=== PATIENT | female | born 1965 | race Caucasian/White ===

== ENCOUNTER 2024-11-03 08:56 | Emergency (ER) | payer OTHER ==
[~2024-11-03] VITALS: Ht 162.6 cm; Wt 138.3 kg
[2024-11-03 10:11] LABS: BASOPHILS ABSOLUTE AUTO 0.03 K/mm3 (0.00-0.23); BASOPHILS PERCENT AUTO 1 % (0-2); EOSINOPHILS ABSOLUTE AUTO 0.17 K/mm3 (0.00-0.68); EOSINOPHILS PERCENT AUTO 3 % (0-6); Hematocrit 40.7 % (33.0-51.0); Hemoglobin 13.8 g/dL (11.5-16.0); IMMATURE GRAN ABSOLUTE AUTO 0.04 K/mm3 (0.00-0.10); IMMATURE GRAN PERCENT AUTO 1 % (0-1); LYMPHOCYTES ABSOLUTE AUTO 1.39 K/mm3 (0.84-5.20); LYMPHOCYTES PERCENT AUTO 21 % (21-46); MONOCYTES ABSOLUTE AUTO 0.65 K/mm3 (0.16-1.47); MONOCYTES PERCENT AUTO 10 % (4-13); Mean Corpuscular HGB 32.7 pg (26.0-34.0); Mean Corpuscular HGB Conc 33.9 g/dL (31.5-36.5); Mean Corpuscular Volume 96 fL (80-100); Mean Platelet Volume 9.5 fL (9.1-12.4); NEUTROPHILS ABSOLUTE AUTO 4.21 K/mm3 (1.96-9.15); NEUTROPHILS PERCENT AUTO 65 % (41-73); Platelet Count 133 K/mm3 (150-400); RDW Coefficient Variation 16.1 % (11.7-14.2); RDW Standard Deviation 57.5 fL (35.1-46.3); Red Blood Cell Count 4.22 M/mm3 (3.80-5.20); White Blood Cell Count 6.49 K/mm3 (4.00-11.30)
[2024-11-03 10:14] LABS: Appearance, Urine Hazy (Clear); Bilirubin, Urine Neg (Neg); Blood, Urine Neg (Neg); Color, Urine Yellow (P-Yellow); Glucose Qualitative, Urine 3+ (Neg); Ketones, Urine Neg (Neg); Leukocyte Esterase, Urine Neg (Neg); Nitrite, Urine Neg (Neg); Protein, Urine Neg (Neg); Source, Urine Clean Catch; Urobilinogen, Urine NORM (Normal)
[2024-11-03 10:24] LABS: Albumin, Blood 3.1 g/dL (3.4-5.0); Albumin/Globulin Ratio 0.7 (0.8-1.8); Bilirubin, Total 0.7 mg/dL (0.1-1.0); Bun/Creatinine Ratio 19.6 (12.0-20.0); Creatinine, Blood 0.71 mg/dL (0.40-1.00); Globulin, Blood 4.6 g/dL (2.2-4.0); Potassium, Blood 4.2 mmol/L (3.5-5.5); Total Protein, Blood 7.7 g/dL (6.4-8.2)
[2024-11-03 11:42] LABS: Bacteria Many /hpf; Red Blood Cells, Urine 0-2 /hpf (0-2); Squamous Epithelial Cells Many /hpf (Few); White Blood Cells, Urine 0-2 /hpf (0-5)
[2024-11-03 11:43] LABS: Calcium Oxalate Crystals Rare /hpf; Mucus Light (0-Heavy)
[2024-11-03] MEDS ORDERED: HYDROcodone 5-APAP 325 TAB PO ONE (13:00)
[2024-11-03] MEDS ORDERED: Ketorolac Tromethamine 15mg Vial IV ONE (13:00)
[2024-11-03] MEDS ORDERED: Ondansetron HCl 2 MG / ML 2ML Vial IV ONE (13:15)
[2024-11-03] MEDS ORDERED: HYDROmorphone HCl/Pf 1MG SYR IV ONE (13:15)
[2024-11-03 13:22] VITALS: BP 126/84
== END 2024-11-03 14:25 | disposition home or self-care (01) ==
LOC: ER 08:56
PROVIDERS: Student in an Organized Health Care Education/Training Program
DX: R10.11 Right upper quadrant pain (principal); K76.0 Fatty (change of) liver, not elsewhere classified; N20.0 Calculus of kidney
CPT/HCPCS: 74177; 76705; 80053; 81001; 83690; 85025; 87086; 96374-59; 96375; 99285-25; A9270; J1171; J2405; Q9967

== ENCOUNTER 2024-11-08 00:34 | Emergency (ER) | payer OTHER ==
[~2024-11-08] VITALS: Ht 162.6 cm; Wt 138.3 kg
[2024-11-08 01:14] LABS: BASOPHILS ABSOLUTE AUTO 0.02 K/mm3 (0.00-0.23); BASOPHILS PERCENT AUTO 0 % (0-2); EOSINOPHILS PERCENT AUTO 1 % (0-6); Hematocrit 36.5 % (33.0-51.0); Hemoglobin 12.5 g/dL (11.5-16.0); IMMATURE GRAN ABSOLUTE AUTO 0.05 K/mm3 (0.00-0.10); IMMATURE GRAN PERCENT AUTO 1 % (0-1); LYMPHOCYTES ABSOLUTE AUTO 1.24 K/mm3 (0.84-5.20); LYMPHOCYTES PERCENT AUTO 16 % (21-46); MONOCYTES ABSOLUTE AUTO 0.74 K/mm3 (0.16-1.47); MONOCYTES PERCENT AUTO 10 % (4-13); Mean Corpuscular HGB 33.2 pg (26.0-34.0); Mean Corpuscular HGB Conc 34.2 g/dL (31.5-36.5); Mean Corpuscular Volume 97 fL (80-100); Mean Platelet Volume 9.7 fL (9.1-12.4); NEUTROPHILS PERCENT AUTO 72 % (41-73); Platelet Count 146 K/mm3 (150-400); RDW Coefficient Variation 15.5 % (11.7-14.2); RDW Standard Deviation 55.5 fL (35.1-46.3); Red Blood Cell Count 3.77 M/mm3 (3.80-5.20); White Blood Cell Count 7.65 K/mm3 (4.00-11.30)
[2024-11-08 01:30] LABS: Albumin, Blood 2.7 g/dL (3.4-5.0); Albumin/Globulin Ratio 0.6 (0.8-1.8); Bilirubin, Total 0.6 mg/dL (0.1-1.0); Bun/Creatinine Ratio 24.2 (12.0-20.0); Calcium, Blood 8.7 mg/dL (8.5-10.1); Creatinine, Blood 0.54 mg/dL (0.40-1.00); Globulin, Blood 4.7 g/dL (2.2-4.0); Potassium, Blood 4.5 mmol/L (3.5-5.5); Total Protein, Blood 7.4 g/dL (6.4-8.2)
[2024-11-08 04:58] VITALS: BP 139/75
[2024-11-08] MEDS ORDERED: MAGCIT300 PO (05:33)
[2024-11-08] MEDS ORDERED: BISA5EC PO (05:33)
[2024-11-08] MEDS ORDERED: OXYC5 PO (05:33)
[2024-11-08] MEDS ORDERED: OxyCODONE 5 mg/Acetamin 325 mg TABLET PO ONE (05:35)
[2024-11-08] MEDS ORDERED: RX Prepack 6 Tabs Oxycodone 5mg UD ONE (05:35)
== END 2024-11-08 05:50 | disposition home or self-care (01) ==
LOC: ER 00:34
PROVIDERS: Student in an Organized Health Care Education/Training Program
DX: R10.9 Unspecified abdominal pain (principal); K59.00 Constipation, unspecified
CPT/HCPCS: 80053; 83690; 85025; 93005; 93010; 99284-25; A9270

== ENCOUNTER 2024-11-10 13:01 | Inpatient (IN) | payer OTHER ==
[~2024-11-10] VITALS: Ht 167.6 cm; Wt 90.7 kg
[~2024-11-10 13:01] MED LIST: BISA5EC PO; MAGCIT300 PO; OXYC5 PO
[2024-11-10 13:36] LABS: BASOPHILS ABSOLUTE AUTO 0.02 K/mm3 (0.00-0.23); BASOPHILS PERCENT AUTO 0 % (0-2); EOSINOPHILS ABSOLUTE AUTO 0.03 K/mm3 (0.00-0.68); EOSINOPHILS PERCENT AUTO 0 % (0-6); Hematocrit 37.6 % (33.0-51.0); Hemoglobin 13.1 g/dL (11.5-16.0); IMMATURE GRAN ABSOLUTE AUTO 0.09 K/mm3 (0.00-0.10); IMMATURE GRAN PERCENT AUTO 1 % (0-1); LYMPHOCYTES ABSOLUTE AUTO 1.05 K/mm3 (0.84-5.20); LYMPHOCYTES PERCENT AUTO 9 % (21-46); MONOCYTES ABSOLUTE AUTO 0.95 K/mm3 (0.16-1.47); MONOCYTES PERCENT AUTO 8 % (4-13); Mean Corpuscular HGB 33.2 pg (26.0-34.0); Mean Corpuscular HGB Conc 34.8 g/dL (31.5-36.5); Mean Corpuscular Volume 95 fL (80-100); Mean Platelet Volume 9.5 fL (9.1-12.4); NEUTROPHILS ABSOLUTE AUTO 9.57 K/mm3 (1.96-9.15); NEUTROPHILS PERCENT AUTO 82 % (41-73); Platelet Count 155 K/mm3 (150-400); RDW Coefficient Variation 15.9 % (11.7-14.2); RDW Standard Deviation 56.2 fL (35.1-46.3); Red Blood Cell Count 3.94 M/mm3 (3.80-5.20); White Blood Cell Count 11.71 K/mm3 (4.00-11.30)
[2024-11-10 13:50] LABS: Albumin, Blood 2.5 g/dL (3.4-5.0); Albumin/Globulin Ratio 0.5 (0.8-1.8); Bilirubin, Total 1.4 mg/dL (0.1-1.0); Bun/Creatinine Ratio 27.7 (12.0-20.0); Calcium, Blood 8.6 mg/dL (8.5-10.1); Creatinine, Blood 0.58 mg/dL (0.40-1.00); Total Protein, Blood 7.5 g/dL (6.4-8.2)
[2024-11-10] MEDS ORDERED: CefTRIAXone Sodium 1,000 MG in NS 100 ML IV ONE (15:10)
[2024-11-10] MEDS ORDERED: Albuterol 2.5 MG/3 ML VIAL INH PRN (16:45)
[2024-11-10] MEDS ORDERED: Ipratropium/Albuterol SulF 2.5-0.5MG/3 ML Amp INH SCH (16:50)
[2024-11-10] MEDS ORDERED: FLU VACC TS2024-25(6MOS UP)/PF 45 MCG/0.5 ML SYRINGE IM SCH (16:50)
[2024-11-10] MEDS ORDERED: Magnesium Hydroxide Conc 10 ML UDC PO PRN (16:50)
[2024-11-10] MEDS ORDERED: Acetaminophen 325 MG TABLET PO PRN (16:55)
[2024-11-10] MEDS ORDERED: HYDROcodone 10-APAP 325 TAB PO PRN (16:55)
[2024-11-10] MEDS ORDERED: NS 1,000 ML IV SCH (16:55)
[2024-11-10] MEDS ORDERED: Ondansetron HCl 2 MG / ML 2ML Vial IV PRN (16:55)
[2024-11-10] MEDS ORDERED: Vancomycin HCL 1,750 MG in NS 500 ML IV ONE (17:05)
[2024-11-10] MEDS ORDERED: Piperacillin/Tazobactam Sod 4.5 GM in NS 100 ML IV SCH (18:00)
[2024-11-10] MEDS ORDERED: PROP60 PO (19:18)
[2024-11-10] MEDS ORDERED: Cyclobenzaprine5 MG PO (19:19)
[2024-11-10] MEDS ORDERED: PROG100 PO (19:19)
[2024-11-10] MEDS ORDERED: Norco 10-325 T1 EACH PO (19:28)
[2024-11-10] MEDS ORDERED: OMEP20ER PO (19:29)
[2024-11-10] MEDS ORDERED: MONT10T PO (19:29)
[2024-11-10] MEDS ORDERED: LOSA50 PO (19:30)
[2024-11-10] MEDS ORDERED: FOLI1 PO (19:31)
[2024-11-10] MEDS ORDERED: TRAZ50 PO (19:31)
[2024-11-10] MEDS ORDERED: FURO20 PO (19:32)
[2024-11-10] MEDS ORDERED: SPIR50 PO (19:32)
[2024-11-10] MEDS ORDERED: VENL150ER PO (19:33)
[2024-11-10] MEDS ORDERED: BASAGLAR K100 UNIT/1 SC ×2 (19:33→20:30)
[2024-11-10] MEDS ORDERED: MIRT15 PO (19:34)
[2024-11-10] MEDS ORDERED: CELE200 PO (19:34)
[2024-11-10] MEDS ORDERED: NOVOLOG FL100 UNIT/3 SC (19:36)
[2024-11-10] MEDS ORDERED: METHOTREXATE2.5 M2 PO (19:36)
[2024-11-10] MEDS ORDERED: Bentyl10 MG PO (19:37)
[2024-11-10] MEDS ORDERED: NS 250 ML IV PRN (19:45)
[2024-11-10] MEDS ORDERED: ALBU90OI INH (20:27)
[2024-11-10] MEDS ORDERED: CLON.5 PO (20:28)
[2024-11-10 20:29] VITALS: BP 158/82
[2024-11-10] MEDS ORDERED: Insulin Human Lispro 100 Units/ML 3ML Syringe SC SCH (21:00)
[2024-11-10] MEDS ORDERED: Insulin Glargine-Yfgn 100 Unit/mL 3 ML SYR SC SCH (21:00)
[2024-11-10] MEDS ORDERED: Docusate Sodium 100 MG Cap PO SCH (21:00)
[2024-11-10] MEDS ORDERED: GuaiFENesin 600 MG TabCR PO SCH (21:00)
[2024-11-10] MEDS ORDERED: ClonazePAM 0.5 MG Tab PO PRN (23:30)
[2024-11-10] MEDS ORDERED: Cyclobenzaprine HCl 10 MG Tab PO PRN (23:30)
[2024-11-11 02:20] VITALS: BP 150/81
[2024-11-11] MEDS ORDERED: Vancomycin HCL 1,000 MG in NS 250 ML IV SCH ×2 (04:00→16:00)
[2024-11-11 05:56] LABS: BASOPHILS ABSOLUTE AUTO 0.02 K/mm3 (0.00-0.23); BASOPHILS PERCENT AUTO 0 % (0-2); EOSINOPHILS PERCENT AUTO 0 % (0-6); Hematocrit 36.6 % (33.0-51.0); Hemoglobin 12.1 g/dL (11.5-16.0); IMMATURE GRAN ABSOLUTE AUTO 0.11 K/mm3 (0.00-0.10); IMMATURE GRAN PERCENT AUTO 1 % (0-1); LYMPHOCYTES ABSOLUTE AUTO 0.83 K/mm3 (0.84-5.20); LYMPHOCYTES PERCENT AUTO 7 % (21-46); MONOCYTES ABSOLUTE AUTO 0.93 K/mm3 (0.16-1.47); MONOCYTES PERCENT AUTO 8 % (4-13); Mean Corpuscular HGB 32.9 pg (26.0-34.0); Mean Corpuscular HGB Conc 33.1 g/dL (31.5-36.5); Mean Platelet Volume 9.8 fL (9.1-12.4); NEUTROPHILS ABSOLUTE AUTO 9.66 K/mm3 (1.96-9.15); NEUTROPHILS PERCENT AUTO 84 % (41-73); Platelet Count 149 K/mm3 (150-400); RDW Coefficient Variation 15.9 % (11.7-14.2); RDW Standard Deviation 58.2 fL (35.1-46.3); Red Blood Cell Count 3.68 M/mm3 (3.80-5.20); White Blood Cell Count 11.55 K/mm3 (4.00-11.30)
[2024-11-11] MEDS ORDERED: Omeprazole 20 MG CapCR PO SCH (06:00)
[2024-11-11 06:03] LABS: Mean Corpuscular Volume 100 fL (80-100)
[2024-11-11 06:34] LABS: Magnesium, Blood 2.2 mg/dL (1.6-2.4)
[2024-11-11 06:36] LABS: Albumin, Blood 2.1 g/dL (3.4-5.0); Albumin/Globulin Ratio 0.4 (0.8-1.8); Bilirubin, Total 0.7 mg/dL (0.1-1.0); Bun/Creatinine Ratio 31.6 (12.0-20.0); Calcium, Blood 8.6 mg/dL (8.5-10.1); Creatinine, Blood 0.57 mg/dL (0.40-1.00); Globulin, Blood 4.7 g/dL (2.2-4.0); Potassium, Blood 4.9 mmol/L (3.5-5.5); Total Protein, Blood 6.8 g/dL (6.4-8.2)
[2024-11-11 07:25] VITALS: BP 146/79
[2024-11-11] MEDS ORDERED: Dicyclomine HCL 10 MG Capsule PO SCH (09:00)
[2024-11-11] MEDS ORDERED: Celecoxib 100 MG Cap PO SCH (09:00)
[2024-11-11] MEDS ORDERED: Insulin Glargine-Yfgn 100 Unit/mL 3 ML SYR SC SCH (09:00)
[2024-11-11] MEDS ORDERED: Montelukast Sodium 10 MG Tab PO SCH (09:00)
[2024-11-11] MEDS ORDERED: Venlafaxine HCl 75 MG CapCR PO SCH ×2 (09:00→21:00)
[2024-11-11] MEDS ORDERED: Furosemide 20 MG Tab PO SCH (09:00)
[2024-11-11] MEDS ORDERED: Folic Acid 1 MG TAB PO SCH (09:00)
[2024-11-11] MEDS ORDERED: Enoxaparin 40 MG/0.4 ML SYR SC SCH (09:00)
[2024-11-11] MEDS ORDERED: Spironolactone 50 MG Tab PO SCH (09:00)
[2024-11-11] MEDS ORDERED: Propranolol HCL 20 MG TAB PO SCH (09:00)
[2024-11-11] MEDS ORDERED: SYMBICORT 160-4.6 GM INH (09:44)
[2024-11-11] MEDS ORDERED: Ipratropium/Albuterol SulF 2.5-0.5MG/3 ML Amp INH SCH (11:00)
--- NOTE | 2024-11-11 12:05 | NUR ---
THIS RN NOTIFIED OF PT'S BLOOD GLUCOSE OF 392. PER PROVIDER, GIVE INSULIN PER EMAR SLIDING SCALE.
[2024-11-11] MEDS ORDERED: Nystatin 100,000 Unit/ML Susp 5 ML UDC SS SCH (13:00)
[2024-11-11] MEDS ORDERED: Piperacillin/Tazobactam Sod 4.5 GM in NS 100 ML IV SCH (15:00)
[2024-11-11 15:51] VITALS: BP 164/87
[2024-11-11] MEDS ORDERED: Vancomycin HCL 1,500 MG in NS 250 ML IV SCH (16:00)
--- NOTE | 2024-11-11 18:44 | NUR ---
SHIFT SUMMARY PT A&OX4, VSS, AMB IND, ON 4L O2 NC, TOLERATING PO, VOIDING, AND PAIN MANAGED PER EMAR. PHYSICAL AND OCCUPATIONAL THERAPY EVALUATED PT, SEE THERAPY NOTE. PLAN TO CONT IV ABX. CALL LIGHT WITHIN REACH AND PT ABLE TO MAKE NEEDS KNOWN.
[2024-11-11 20:29] VITALS: BP 146/81
[2024-11-11] MEDS ORDERED: Miconazole Nitrate 2% 85 GM PWD TOP SCH (21:00)
[2024-11-11] MEDS ORDERED: BIEST PO SCH (21:00)
[2024-11-11] MEDS ORDERED: Mirtazapine 15 MG Tab PO SCH (21:00)
[2024-11-11] MEDS ORDERED: Progesterone, Micronized 100 MG Cap PO SCH (21:00)
[2024-11-11] MEDS ORDERED: TraZODone HCl 50 MG Tab PO SCH (21:00)
[2024-11-12 05:19] VITALS: BP 129/70
--- NOTE | 2024-11-12 06:30 | NUR ---
SHIFT SUMMARY PT ALERT AND ORIENTED TIMES 4 . PT IS ADMITTED FOR PNEUMONIA. PT IS STAND BY ASSIST TO TOILET, UNSTEADY GAIT. PT IS ABLE TO AMBULATE AROUND ROOM WITH ASSISTANCE. PT IS ON O2 4 LITERS. PHARMACY ABLE TO ENTER HER AT HOME MEDICATIONS. BED IN LOW POSITION, RAILS TIMES TWO, CALL LIGHT WITHIN REACH.
[2024-11-12 07:22] LABS: BASOPHILS ABSOLUTE AUTO 0.03 K/mm3 (0.00-0.23); BASOPHILS PERCENT AUTO 0 % (0-2); EOSINOPHILS ABSOLUTE AUTO 0.15 K/mm3 (0.00-0.68); EOSINOPHILS PERCENT AUTO 2 % (0-6); Hematocrit 35.5 % (33.0-51.0); IMMATURE GRAN ABSOLUTE AUTO 0.12 K/mm3 (0.00-0.10); IMMATURE GRAN PERCENT AUTO 1 % (0-1); LYMPHOCYTES ABSOLUTE AUTO 1.55 K/mm3 (0.84-5.20); LYMPHOCYTES PERCENT AUTO 15 % (21-46); MONOCYTES ABSOLUTE AUTO 0.88 K/mm3 (0.16-1.47); MONOCYTES PERCENT AUTO 9 % (4-13); Mean Corpuscular HGB 32.9 pg (26.0-34.0); Mean Corpuscular HGB Conc 33.8 g/dL (31.5-36.5); Mean Corpuscular Volume 97 fL (80-100); Mean Platelet Volume 9.3 fL (9.1-12.4); NEUTROPHILS ABSOLUTE AUTO 7.58 K/mm3 (1.96-9.15); NEUTROPHILS PERCENT AUTO 74 % (41-73); Platelet Count 167 K/mm3 (150-400); RDW Coefficient Variation 15.9 % (11.7-14.2); RDW Standard Deviation 56.8 fL (35.1-46.3); Red Blood Cell Count 3.65 M/mm3 (3.80-5.20); White Blood Cell Count 10.31 K/mm3 (4.00-11.30)
[2024-11-12 07:31] VITALS: BP 151/107
[2024-11-12 07:38] LABS: Albumin, Blood 2.1 g/dL (3.4-5.0); Albumin/Globulin Ratio 0.4 (0.8-1.8); Bilirubin, Total 0.9 mg/dL (0.1-1.0); Bun/Creatinine Ratio 27.1 (12.0-20.0); Calcium, Blood 8.4 mg/dL (8.5-10.1); Creatinine, Blood 0.66 mg/dL (0.40-1.00); Total Protein, Blood 7.1 g/dL (6.4-8.2)
[2024-11-12 15:55] LABS: Vancomycin, Trough 10.8 ug/mL (5.0-10.0)
[2024-11-12 15:58] VITALS: BP 148/90
[2024-11-12] MEDS ORDERED: ALBU2.5V5 NEB (16:30)
[2024-11-12] MEDS ORDERED: TRIAMCINOLONE TOP (16:37)
--- NOTE | 2024-11-12 17:55 | NUR ---
SHIFT SUMMARY PT CONT WITH LEVEL OF CARE. PT NOTED TO BE A&OX4 AND SBA WITH AMBULATION. PT CONT TO UTILIZE SUPPLEMENTAL OXYGEN PT STARTED OFF ON 4L THIS SHIFT AND HAS BEEN TITRATED DOWN TO 3L WITH SPO2 MAINTAING MID 90S. PT CONT TO FEEL SOB & DIFFICULTY BREATHING WITH ANY EXERTION. PT WILL NEED A HOME O2 EVAL PRIOR TO DC. PT NOTED TO TAKE A SHOWER THIS SHIFT. POSSIBLE DC TOMORROW.
[2024-11-12 19:42] VITALS: BP 148/83
[2024-11-12] MEDS ORDERED: NS 1,000 ML IV SCH (21:05)
[2024-11-12] MEDS ORDERED: CefTRIAXone Sodium 1,000 MG in NS 100 ML IV SCH (21:30)
[2024-11-12] MEDS ORDERED: Azithromycin 250 MG Tab PO SCH (22:00)
--- NOTE | 2024-11-13 04:11 | NUR ---
SHIFT SUMMARY PATIENT HAS BEEN SLEEPING INTERMITTANTLY BETWEEN NURSING CARE. SHE IS ON 3 LITERS OF SUPPLEMENTAL 02. NS IS INFUSING WITHOUT COMPLICATIONS. SHE IS ORIENTED X4. PATIENT HAS HER CALL LIGHT WITHIN REACH AND HAS BEEN INSTRUCTED TO CALL WITH ANY REQUESTS OR NEEDS. SAFETY PRECAUTIONS ARE BEING MAINTAINED.
[2024-11-13 04:54] VITALS: BP 126/63
[2024-11-13 06:25] LABS: BASOPHILS ABSOLUTE AUTO 0.03 K/mm3 (0.00-0.23); BASOPHILS PERCENT AUTO 0 % (0-2); EOSINOPHILS PERCENT AUTO 2 % (0-6); Hematocrit 33.6 % (33.0-51.0); Hemoglobin 11.2 g/dL (11.5-16.0); IMMATURE GRAN ABSOLUTE AUTO 0.19 K/mm3 (0.00-0.10); IMMATURE GRAN PERCENT AUTO 2 % (0-1); LYMPHOCYTES ABSOLUTE AUTO 1.28 K/mm3 (0.84-5.20); LYMPHOCYTES PERCENT AUTO 14 % (21-46); MONOCYTES ABSOLUTE AUTO 0.84 K/mm3 (0.16-1.47); MONOCYTES PERCENT AUTO 10 % (4-13); Mean Corpuscular HGB 32.7 pg (26.0-34.0); Mean Corpuscular HGB Conc 33.3 g/dL (31.5-36.5); Mean Corpuscular Volume 98 fL (80-100); Mean Platelet Volume 9.2 fL (9.1-12.4); NEUTROPHILS ABSOLUTE AUTO 6.34 K/mm3 (1.96-9.15); NEUTROPHILS PERCENT AUTO 71 % (41-73); NRBC ABSOLUTE 0.02 K/mm3 (0.00-0.02); NRBC Auto 0.2 /100 WBC (0.0-0.2); Platelet Count 146 K/mm3 (150-400); RDW Coefficient Variation 15.8 % (11.7-14.2); Red Blood Cell Count 3.43 M/mm3 (3.80-5.20); White Blood Cell Count 8.88 K/mm3 (4.00-11.30)
[2024-11-13 06:54] LABS: Albumin/Globulin Ratio 0.4 (0.8-1.8); Bilirubin, Total 0.6 mg/dL (0.1-1.0); Bun/Creatinine Ratio 21.2 (12.0-20.0); Calcium, Blood 8.1 mg/dL (8.5-10.1); Creatinine, Blood 0.66 mg/dL (0.40-1.00); Globulin, Blood 4.7 g/dL (2.2-4.0); Phosphorus, Blood 3.5 mg/dL (2.5-4.9); Total Protein, Blood 6.7 g/dL (6.4-8.2)
[2024-11-13 07:34] VITALS: BP 132/80
[2024-11-13 16:19] VITALS: BP 154/75
--- NOTE | 2024-11-13 18:10 | NUR ---
PT IS AOX4 AND CURRENTLY ON 2 L O2. PT INDEPENDENT AND ABLE TO MAKE NEEDS KNOWN. PT WAS ABLE TO AMBULATE INTO RESTROOM AND TAKE A SHOWER INDPENEDENTLY. NO DISTRESS NOTED WILL CONTINUE TO MONITOR.
[2024-11-13 19:34] VITALS: BP 145/68
--- NOTE | 2024-11-14 03:16 | NUR ---
CRAB BUTCHER SUMMARY: PT ADMITTED FOR PNEUMONIA. FULL CODE. A&O X4, MAKES NEEDS KNOWN AND CALLS APPROPRIATELY. INDEPENDENT WITH CARES IN ROOM. NO ADVERSE SIDE EFFECTS TO IV ABX. SATS MAINTAINED ABOVE 90% ON 2L OXYGEN VIA NC. OCCASIONAL COUGH, AND SOB WITH EXERTION. MEDICATED FOR PAIN AND ANXIETY AT BEGINNING OF SHIFT PER EMAR ORDERS; EFFECTIVE. NO ACUTE CHANGES T/O SHIFT. BED IN LOWEST POSITION. CALL LIGHT IN REACH. CARES CONTINUE ORDERED.
[2024-11-14 03:37] VITALS: BP 126/68
[2024-11-14] MEDS ORDERED: NS 1,000 ML IV SCH (06:00)
[2024-11-14 07:30] VITALS: BP 155/76
[2024-11-14] MEDS ORDERED: Acetaminophen650 M1 PO (13:37)
[2024-11-14] MEDS ORDERED: GUAIFENESIN ER600 MG PO (13:38)
--- NOTE | 2024-11-14 17:29 | NUR ---
PT DISCHARGED AT 1400 ALL PAPERWORK REVIEWED AND EDUCATIONAL MATERIAL SENT WITH PT. PT COLLECTED PERSONAL BELONGINGS AND HAS BEEN INDEPENDENT IN ROOM . PORTABLE O2 TANK WAS DROPPED OF BY [employer] PRIOR TO DISCHARGE. PT ESCORTED OUT VIA WHEEL CHAIR WITH TO TRANSPORT.
== END 2024-11-14 14:40 | disposition home or self-care (01) | DRG 193 ==
LOC: ER 13:01 → MEDS 16:44
PROVIDERS: Emergency Medicine; Hospitalist; ADMIT Family Medicine
PROC: 5A09357 Assistance with Respiratory Ventilation, Less than 24 Consecutive Hours, Continuous Positive Airway Pressure (ICD-10-PCS; principal; 2024-11-10)
DX: J18.9 Pneumonia, unspecified organism (principal); J96.91 Respiratory failure, unspecified with hypoxia; D84.9 Immunodeficiency, unspecified; E87.1 Hypo-osmolality and hyponatremia; M06.9 Rheumatoid arthritis, unspecified; E11.65 Type 2 diabetes mellitus with hyperglycemia; E80.6 Other disorders of bilirubin metabolism; J45.909 Unspecified asthma, uncomplicated; M79.671 Pain in right foot; G89.4 Chronic pain syndrome; G43.909 Migraine, unspecified, not intractable, without status migrainosus; F41.8 Other specified anxiety disorders; M19.90 Unspecified osteoarthritis, unspecified site; E55.9 Vitamin D deficiency, unspecified; R16.2 Hepatomegaly with splenomegaly, not elsewhere classified; K76.0 Fatty (change of) liver, not elsewhere classified; E66.9 Obesity, unspecified; E04.1 Nontoxic single thyroid nodule; Z87.2 Personal history of diseases of the skin and subcutaneous tissue; Z90.710 Acquired absence of both cervix and uterus; Z79.51 Long term (current) use of inhaled steroids; Z79.4 Long term (current) use of insulin; Z79.899 Other long term (current) drug therapy; Z79.891 Long term (current) use of opiate analgesic; Z87.442 Personal history of urinary calculi; Z98.890 Other specified postprocedural states; Z68.32 Body mass index [BMI] 32.0-32.9, adult
CPT/HCPCS: 36415; 71045; 71046; 71260; 80053; 80202; 82947; 83735; 83880; 84100; 84484; 85025; 85379; 93005; 93010; 94640; 94660; 94664; 94760; 94761; 97165; 99285-25; A9270; C1751; J0696; J1650; J1815; J2543; J3370; J7030; J7040; J7050; Q9967

== ENCOUNTER → 2025-04-12 | Outpatient (CLI) | payer MEDICARE ==
[~2025-04-12] MED LIST changes: +ALBU2.5V5 NEB; +ALBU90OI INH; +ALEVAZOL56.7 G1 TOP; +Acetaminophen650 M1 PO; +BASAGLAR K100 UNIT/1 SC; +BENZ100A PO; +BREYNA 160-4.10.3 GM INH; +Bentyl10 MG PO; +CELE200 PO; +CLON.5 PO; +Cyclobenzaprine5 MG PO; +DICLOFENAC SOD100 GM TOP; +FOLI1 PO; +FURO20 PO; +GUAIFENESIN ER600 MG PO; +INSULANI SC; +LOSA50 PO; +METHOTREXATE2.5 M2 PO; +METTREX2.5 PO; +MIRT15 PO; +MONT10T PO; +NOVOLOG FL100 UNIT/3 SC; +NYSTRIT TOP; +Norco 10-325 T1 EACH PO; +OMEP20ER PO; +PROG100 PO; +PROP60 PO; +SIMPONI AR50 MG/4 M1 IV; +SPIR50 PO; +SUMA25 PO; +SYMBICORT 160-4.6 GM INH; +TRAZ50 PO; +TRIAMCINOLONE TOP; +VENL150ER PO
[2025-04-12 19:22] LABS: BASOPHILS ABSOLUTE AUTO 0.02 K/mm3 (0.00-0.23); BASOPHILS PERCENT AUTO 1 % (0-2); EOSINOPHILS ABSOLUTE AUTO 0.07 K/mm3 (0.00-0.68); EOSINOPHILS PERCENT AUTO 2 % (0-6); Hematocrit 32.9 % (33.0-51.0); Hemoglobin 10.8 g/dL (11.5-16.0); IMMATURE GRAN ABSOLUTE AUTO 0.07 K/mm3 (0.00-0.10); IMMATURE GRAN PERCENT AUTO 2 % (0-1); LYMPHOCYTES ABSOLUTE AUTO 1.06 K/mm3 (0.84-5.20); LYMPHOCYTES PERCENT AUTO 25 % (21-46); MONOCYTES ABSOLUTE AUTO 0.34 K/mm3 (0.16-1.47); MONOCYTES PERCENT AUTO 8 % (4-13); Mean Corpuscular HGB Conc 32.8 g/dL (31.5-36.5); Mean Corpuscular Volume 100 fL (80-100); NEUTROPHILS ABSOLUTE AUTO 2.74 K/mm3 (1.96-9.15); NEUTROPHILS PERCENT AUTO 64 % (41-73); NRBC ABSOLUTE 0.02 K/mm3 (0.00-0.02); NRBC Auto 0.5 /100 WBC (0.0-0.2); Platelet Count 78 K/mm3 (150-400); RDW Coefficient Variation 17.4 % (11.7-14.2); RDW Standard Deviation 62.4 fL (35.1-46.3)
== END ==
LOC: LAB 17:05 → LAB SHORT 17:05
PROVIDERS: Internal Medicine Hematology & Oncology
DX: D69.6 Thrombocytopenia, unspecified (principal)
CPT/HCPCS: 85025

== ENCOUNTER 2025-05-09 00:27 | Day surgery (SDC) | payer MEDICARE, OTHER ==
[~2025-05-09] VITALS: Wt 132.4 kg
[~2025-05-09 00:27] MED LIST changes: +ABAT250V IV
[2025-05-09 15:57] VITALS: BP 141/76
[2025-05-09] MEDS ORDERED: Abatacept/Maltose 1,000 MG in NS 100 ML IV SCH (16:15)
== END 2025-05-09 17:04 | disposition home or self-care (01) ==
LOC: ATC 00:27
DX: M05.79 Rheumatoid arthritis with rheumatoid factor of multiple sites without organ or systems involvement (principal); J45.909 Unspecified asthma, uncomplicated; G43.909 Migraine, unspecified, not intractable, without status migrainosus; E66.9 Obesity, unspecified; Z79.899 Other long term (current) drug therapy
CPT/HCPCS: 96365; A9270; J0129-JA

== ENCOUNTER 2025-05-24 02:15 | Day surgery (SDC) | payer MEDICARE ==
[2025-05-24 14:20] VITALS: BP 123/62
[2025-05-24] MEDS ORDERED: Abatacept/Maltose 1,000 MG in NS 100 ML IV SCH (14:20)
== END 2025-05-24 15:25 | disposition home or self-care (01) ==
LOC: ATC 02:15
DX: M05.79 Rheumatoid arthritis with rheumatoid factor of multiple sites without organ or systems involvement (principal); G89.4 Chronic pain syndrome; M85.80 Other specified disorders of bone density and structure, unspecified site; J45.909 Unspecified asthma, uncomplicated; G43.909 Migraine, unspecified, not intractable, without status migrainosus; K21.9 Gastro-esophageal reflux disease without esophagitis; E66.9 Obesity, unspecified; Z79.899 Other long term (current) drug therapy; Z90.710 Acquired absence of both cervix and uterus
CPT/HCPCS: 96365; A9270; J0129-JA

== ENCOUNTER 2025-06-02 19:37 | Inpatient (IN) | payer MEDICARE ==
[~2025-06-02] VITALS: Ht 162.6 cm; Wt 131.5 kg
[2025-06-02 20:06] LABS: Hematocrit 21.1 % (33.0-51.0); Hemoglobin 7.0 g/dL (11.5-16.0); IMMATURE RETIC FRACTION 24.00 % (2.3-16.0); Mean Corpuscular HGB Conc 33.2 g/dL (31.5-36.5); Mean Corpuscular Volume 95 fL (80-100); NRBC ABSOLUTE 0.12 K/mm3 (0.00-0.02); NRBC Auto 2.7 /100 WBC (0.0-0.2); RDW Coefficient Variation 18.2 % (11.7-14.2); RDW Standard Deviation 63.3 fL (35.1-46.3); RETIC HGB EQUIVALENT 31.50 pg (28.20-36.60); RETICULOCYTE ABSOLUTE 0.0615 M/mm3 (0.0200-0.1100); RETICULOCYTE COUNT PERCENT 2.77 % (0.50-2.50)
[2025-06-02 20:15] LABS: Platelet Count 24 K/mm3 (150-400)
[2025-06-02 20:21] LABS: D-Dimer, Quantitative 1.09 mg/L FEU (0.00-0.52); Fibrinogen 667.0 mg/dL (170-430); Prothrombin Time Results 12.0 Sec (9.7-11.5)
[2025-06-02 20:28] LABS: Lactate Dehydrogenase (Ld),Bld 503.0 U/L (100-240)
[2025-06-02 20:35] LABS: Bilirubin, Urine Neg (Neg); Color, Urine Yellow (P-Yellow); Glucose Qualitative, Urine 2+ (Neg); Ketones, Urine 1+ (Neg); Leukocyte Esterase, Urine 1+ (Neg); Protein, Urine 2+ (Neg); Source, Urine Clean Catch; Specific Gravity, Urine 1.030 (1.003-1.022); Urobilinogen, Urine 1+ (Normal)
[2025-06-02 21:09] LABS: BASOPHILS ABSOLUTE MAN 0.00 K/mm3 (0.00-0.23); BASOPHILS PERCENT MAN 0 % (0-2); EOSINOPHILS ABSOLUTE MAN 0.00 K/mm3 (0.00-0.68); EOSINOPHILS PERCENT MAN 0 % (0-6); LYMPHOCYTES % ATYPICAL MANUAL 2 % (0-0); LYMPHOCYTES ABSOLUTE MAN 1.36 K/mm3 (0.84-5.20); LYMPHOCYTES PERCENT MAN 29 % (21-46); MONOCYTES ABSOLUTE MAN 0.13 K/mm3 (0.16-1.47); MONOCYTES PERCENT MAN 3 % (4-13); MYELOCYTE ABSOLUTE MAN 0.13 K/mm3 (0.00-0.00); MYELOCYTE PERCENT MAN 3 % (0-0); NEUTROPHILS ABSOLUTE MAN 2.76 K/mm3 (1.96-9.15); SEG NEUTROPHILS PERCENT MAN 63 % (41-73)
[2025-06-02 21:17] LABS: Red Blood Cells, Urine 0-2 /hpf (0-2)
[2025-06-02 23:55] LABS: Alanine Aminotransfer (ALT/SGP 18.0 U/L (12-78); Albumin, Blood 3.0 g/dL (3.4-5.0); Albumin/Globulin Ratio 0.7 (0.8-1.8); Anion Gap 12.0 mmol/L (3-11); Aspartate Aminotrans (AST/SGOT 12.0 U/L (12-37); Bilirubin, Total 0.7 mg/dL (0.1-1.0); Blood Urea Nitrogen 18.0 mg/dL (8-24); CO2, Blood 26.0 mmol/L (21-32); Calcium, Blood 8.7 mg/dL (8.5-10.1); Chloride, Blood 99.0 mmol/L (98-108); Creatinine, Blood 0.83 mg/dL (0.40-1.00); Globulin, Blood 4.4 g/dL (2.2-4.0); Glucose, Blood 307.0 mg/dL (70-99); Potassium, Blood 3.8 mmol/L (3.5-5.5); Sodium, Blood 133.0 mmol/L (136-145); Total Protein, Blood 7.4 g/dL (6.4-8.2)
[2025-06-03] MEDS ORDERED: Ondansetron HCl 2 MG / ML 2ML Vial IV PRN (00:35)
[2025-06-03] MEDS ORDERED: FLU VACC TS2025-26(6MOS UP)/PF 45 MCG/0.5 ML SYRINGE IM SCH (00:35)
[2025-06-03 02:15] LABS: Hematocrit 19.1 % (33.0-51.0); Hemoglobin 6.4 g/dL (11.5-16.0)
[2025-06-03 02:37] LABS: Platelet Count 19 K/mm3 (150-400)
[2025-06-03] MEDS ORDERED: NS 1,000 ML IV ONE (03:53)
[2025-06-03 06:16] LABS: Magnesium, Blood 2.2 mg/dL (1.6-2.4)
[2025-06-03 06:17] LABS: Alanine Aminotransfer (ALT/SGP 15.0 U/L (12-78); Albumin, Blood 2.6 g/dL (3.4-5.0); Albumin/Globulin Ratio 0.7 (0.8-1.8); Anion Gap 7.0 mmol/L (3-11); Aspartate Aminotrans (AST/SGOT 12.0 U/L (12-37); Bilirubin, Total 0.6 mg/dL (0.1-1.0); Blood Urea Nitrogen 18.0 mg/dL (8-24); CO2, Blood 29.0 mmol/L (21-32); Calcium, Blood 8.3 mg/dL (8.5-10.1); Chloride, Blood 101.0 mmol/L (98-108); Creatinine, Blood 0.7 mg/dL (0.40-1.00); Globulin, Blood 3.7 g/dL (2.2-4.0); Glucose, Blood 250.0 mg/dL (70-99); Potassium, Blood 4.0 mmol/L (3.5-5.5); Sodium, Blood 133.0 mmol/L (136-145); Total Protein, Blood 6.3 g/dL (6.4-8.2)
[2025-06-03 07:25] LABS: Hematocrit 21.2 % (33.0-51.0); Hemoglobin 7.3 g/dL (11.5-16.0); Mean Corpuscular HGB Conc 34.4 g/dL (31.5-36.5); Mean Corpuscular Volume 91 fL (80-100); NRBC ABSOLUTE 0.06 K/mm3 (0.00-0.02); NRBC Auto 1.5 /100 WBC (0.0-0.2); RDW Coefficient Variation 17.6 % (11.7-14.2); RDW Standard Deviation 57.3 fL (35.1-46.3)
[2025-06-03 07:29] LABS: Platelet Count 20 K/mm3 (150-400)
[2025-06-03] MEDS ORDERED: Insulin Human Lispro 100 Units/ML 3ML Syringe SC SCH (07:30)
[2025-06-03 07:49] LABS: BASOPHILS ABSOLUTE MAN 0.00 K/mm3 (0.00-0.23); BASOPHILS PERCENT MAN 0 % (0-2); EOSINOPHILS ABSOLUTE MAN 0.04 K/mm3 (0.00-0.68); EOSINOPHILS PERCENT MAN 1 % (0-6); LYMPHOCYTES ABSOLUTE MAN 1.45 K/mm3 (0.84-5.20); LYMPHOCYTES PERCENT MAN 36 % (21-46); METAMYELOCYTE ABSOLUTE MAN 0.04 K/mm3 (0.00-0.00); METAMYELOCYTE PERCENT MAN 1 % (0-0); MONOCYTES ABSOLUTE MAN 0.20 K/mm3 (0.16-1.47); MONOCYTES PERCENT MAN 5 % (4-13); MYELOCYTE ABSOLUTE MAN 0.04 K/mm3 (0.00-0.00); MYELOCYTE PERCENT MAN 1 % (0-0); NEUTROPHILS ABSOLUTE MAN 2.05 K/mm3 (1.96-9.15); OTHER CELL PERCENT MAN 5 % (0-0); SEG NEUTROPHILS PERCENT MAN 51 % (41-73)
[2025-06-03] MEDS ORDERED: Insulin Glargine 100 Unit/ML 3 ML SYR SC SCH (09:00)
[2025-06-03] MEDS ORDERED: METO25ER PO (11:53)
[2025-06-03 13:37] VITALS: BP 135/80
[2025-06-03] MEDS ORDERED: HYDROcodone 5-APAP 325 TAB PO PRN (13:45)
[2025-06-03 14:24] LABS: Hematocrit 24.4 % (33.0-51.0); Hemoglobin 8.4 g/dL (11.5-16.0)
[2025-06-03 15:18] LABS: Ferritin, Serum 658.0 ng/mL (8-252); Total Iron Binding Capacity 220.0 ug/dL (250-450)
[2025-06-03 16:35] VITALS: BP 144/72
[2025-06-03 19:38] LABS: Hematocrit 24.3 % (33.0-51.0); Hemoglobin 8.1 g/dL (11.5-16.0)
[2025-06-03 19:40] VITALS: BP 159/76
--- NOTE | 2025-06-03 19:54 | NUR ---
PATIENT WAS ADMITTEN AT 1326 DENIES PAIN OR SOB. ADMIT AND MED REC COMPLETE. VUS COMPLETED FINDINGS OF POSSIBLE INFECTION ON LLLEG. PATIENT PUT ON 2 L O2 VIA NC WHILE SLEEPING FOR DESATURATION. CONTINUES TO DENY PAIN. REPORT GIVEN TO NIGHT NURSE.
[2025-06-03 23:56] VITALS: BP 158/78
[2025-06-04 05:07] VITALS: BP 160/87
[2025-06-04 05:57] LABS: BASOPHILS ABSOLUTE AUTO 0.02 K/mm3 (0.00-0.23); BASOPHILS PERCENT AUTO 1 % (0-2); EOSINOPHILS ABSOLUTE AUTO 0.02 K/mm3 (0.00-0.68); EOSINOPHILS PERCENT AUTO 1 % (0-6); Hematocrit 22.9 % (33.0-51.0); Hemoglobin 7.7 g/dL (11.5-16.0); IMMATURE GRAN ABSOLUTE AUTO 0.12 K/mm3 (0.00-0.10); IMMATURE GRAN PERCENT AUTO 3 % (0-1); LYMPHOCYTES ABSOLUTE AUTO 1.20 K/mm3 (0.84-5.20); LYMPHOCYTES PERCENT AUTO 32 % (21-46); MONOCYTES ABSOLUTE AUTO 0.67 K/mm3 (0.16-1.47); MONOCYTES PERCENT AUTO 18 % (4-13); Mean Corpuscular HGB Conc 33.6 g/dL (31.5-36.5); Mean Corpuscular Volume 94 fL (80-100); NEUTROPHILS ABSOLUTE AUTO 1.76 K/mm3 (1.96-9.15); NEUTROPHILS PERCENT AUTO 46 % (41-73); NRBC ABSOLUTE 0.05 K/mm3 (0.00-0.02); NRBC Auto 1.3 /100 WBC (0.0-0.2); RDW Coefficient Variation 18.2 % (11.7-14.2); RDW Standard Deviation 62.0 fL (35.1-46.3)
[2025-06-04 06:09] LABS: Anion Gap 7.0 mmol/L (3-11); Blood Urea Nitrogen 14.0 mg/dL (8-24); CO2, Blood 30.0 mmol/L (21-32); Calcium, Blood 8.4 mg/dL (8.5-10.1); Chloride, Blood 101.0 mmol/L (98-108); Creatinine, Blood 0.66 mg/dL (0.40-1.00); Glucose, Blood 215.0 mg/dL (70-99); Potassium, Blood 4.2 mmol/L (3.5-5.5); Sodium, Blood 134.0 mmol/L (136-145)
[2025-06-04 06:11] LABS: Platelet Count 18 K/mm3 (150-400)
--- NOTE | 2025-06-04 06:54 | NUR ---
COOK MESS SUMMARY PT A&OX4, VSS, EXCEPT HTN. PT HAS BEEN ASLEEP MOST OF THE NIGHT. CHEST RISE/RESPIRATIONS NOTED. DISRUPTIONS MINIMIZED PT HAD SLEEP STUDY DONE. PT WAS ON 2L NC AT START OF SHIFT. TAKEN OFF O2 FOR SLEEP STUDY. O2 SATS REMAIN >=93%. PT REMAINS ON TELE. SINUS RHYTHM AT 92. AROUND SHIFT CHANGE, AUTHOR WAS NOTIFIED OF CRITICAL VALUE. PLATELETS OF 18. PROVIDER NOTIFIED. NO FURTHER ORDERS AT THIS TIME. PER PROVIDER, CONTINUE TO MONITOR. BED RAILS UP X 2, BED IN LOWEST POSITION, BED WHEELS LOCKED, PERSONAL BELONGINGS AND CALL LIGHT WITHIN REACH FOR SAFETY.
[2025-06-04 08:26] VITALS: BP 138/71
[2025-06-04] MEDS ORDERED: Folic Acid 1 MG TAB PO SCH (09:00)
[2025-06-04] MEDS ORDERED: FentaNYL Citrate 50 MCG/ML 2 ML Injection IV PRN (14:35)
[2025-06-04 14:46] VITALS: BP 158/77
--- NOTE | 2025-06-04 19:03 | NUR ---
END OF SHIFT PT ALERT, ORIENTED, ABLE TO MAKE NEEDS KNOWN. PT UP INDEPENDENTLY IN THE ROOM. FOUND ORDER FOR STOOL SAMPLE X3. ONE SENT TO LAB TODAY. PT SS INSULIN INCREASED AFTER DINNER TODAY, PT AWARE. PT EDUCATED ON GETTING BLOOD SUGAR DONE PRIOR TO EATING A MEAL-ESPECIALLY WHEN BROUGHT IN FROM A FAST FOOD PLACE BY elicit. PT HAS A LARGE BRUISE ON LEFT LOWER LEG THAT PT REPORTS HAS DECREASED IN SIZE. PT HAS BRUISES ALL OVER HER BODY. PT COMPLAINED OF A HEAD ACHE AND REQUESTED MD SARI MADE AWARE AND ORDERED A CT TO RULE OUT POSSIBLE BRAIN BLEED CAUSING THE HEADACHE. PT DID NOT NEED O2 DURING THE DAY. PRN PAIN MEDS GIVEN X2 FOR BACK PAIN.
[2025-06-04 19:23] VITALS: BP 168/74
--- NOTE | 2025-06-04 20:34 | NUR ---
PT HS CBG 354, HOSPITALIST NOTIFIED THAT PT HAS BEEN RUNNING 300'S DURING DAY AND THAT ONLY AC COVERAGE WITH MEDIUM SLIDING SCALE IN PLACE. HOSPITLIST GAVE ORDER TO CHANGE TO AC/HS COVERAGE AND TO GIVE 5 UNITS HUMALIN R PER EMAR.
[2025-06-04] MEDS ORDERED: Insulin Regular 100 UNIT/ML 10ML Vial SC SCH (20:55)
[2025-06-04] MEDS ORDERED: Formoterol/Mometasone MDI 5/200 mcg 13 GM INH SCH (21:05)
[2025-06-04] MEDS ORDERED: Ipratropium/Albuterol SulF 2.5-0.5MG/3 ML Amp INH PRN (21:10)
[2025-06-04 23:47] VITALS: BP 151/83
--- NOTE | 2025-06-05 00:02 | NUR ---
[facility] ALFREDITO HARRELL CALLED FOR CLINICAL UPDATE ON PT. THEY STATE THAT PT MAY BE ABLE TO TRANSFER EARLY TOMORROW, BUT MOST LIKELY WILL BE ON FRIDAY.
[2025-06-05 04:04] VITALS: BP 138/73
[2025-06-05 05:37] LABS: Hematocrit 21.3 % (33.0-51.0); Hemoglobin 7.2 g/dL (11.5-16.0); Mean Corpuscular HGB Conc 33.8 g/dL (31.5-36.5); Mean Corpuscular Volume 93 fL (80-100); NRBC ABSOLUTE 0.10 K/mm3 (0.00-0.02); NRBC Auto 2.6 /100 WBC (0.0-0.2); RDW Coefficient Variation 17.8 % (11.7-14.2); RDW Standard Deviation 59.9 fL (35.1-46.3)
[2025-06-05 05:44] LABS: Stool Occult Blood Guaiac 1 Neg (Neg); Stool Occult Blood Guaiac 2 Neg (Neg)
[2025-06-05 05:46] LABS: HAPTOGLOBIN 119 mg/dL (30-200)
[2025-06-05 05:48] LABS: Platelet Count 17 K/mm3 (150-400)
[2025-06-05 05:56] LABS: Anion Gap 7.0 mmol/L (3-11); Blood Urea Nitrogen 15.0 mg/dL (8-24); CO2, Blood 31.0 mmol/L (21-32); Calcium, Blood 8.2 mg/dL (8.5-10.1); Chloride, Blood 100.0 mmol/L (98-108); Creatinine, Blood 0.65 mg/dL (0.40-1.00); Glucose, Blood 109.0 mg/dL (70-99); Potassium, Blood 3.7 mmol/L (3.5-5.5); Sodium, Blood 134.0 mmol/L (136-145)
[2025-06-05 06:18] LABS: BAND PERCENT MAN 3 % (0-8); BASOPHILS ABSOLUTE MAN 0.00 K/mm3 (0.00-0.23); BASOPHILS PERCENT MAN 0 % (0-2); EOSINOPHILS ABSOLUTE MAN 0.00 K/mm3 (0.00-0.68); EOSINOPHILS PERCENT MAN 0 % (0-6); LYMPHOCYTES ABSOLUTE MAN 1.20 K/mm3 (0.84-5.20); LYMPHOCYTES PERCENT MAN 32 % (21-46); MONOCYTES ABSOLUTE MAN 0.18 K/mm3 (0.16-1.47); MONOCYTES PERCENT MAN 5 % (4-13); NEUTROPHILS ABSOLUTE MAN 2.26 K/mm3 (1.96-9.15); SEG NEUTROPHILS PERCENT MAN 57 % (41-73)
[2025-06-05 06:19] LABS: OTHER CELL PERCENT MAN 3 % (0-0)
--- NOTE | 2025-06-05 06:29 | NUR ---
DR ANNE UROLOGY CALLED @ 0600 TO CONSULT PT ON STENT PLACEMENT TODAY. PT IS NPO FOR PROBABLE SURGICAL INTERVENTION FOR STENT PLACEMENT TODAY. LAMBERTO ROMERO PER ORDERS.
--- NOTE | 2025-06-05 07:19 | NUR ---
SHIFT SUMMARY NOC PT A/O X 4. PLEASANT AND COOPERATIVE WITH CARE. BP ELEVATED AT TIMES. PT ON TELE SINUS RHYTHM IN 90'S. HS CBG 354, HOSPITALIST NOTIFIED AND PT CHANGED TO AC/HS COVERAGE AND 5 UNITS R INSULIN GIVEN PER SLIDING SCALE. PT HOME ASTHMA MEDICATIONS REORDERED WELL BEDTIME TRAZADONE. PT USING 2L/NC FOR SLEEPING AND SPO2 >95% ON BIOX. PT HGB 7.2 and PLT 17 THIS AM. PT CURRENTLY RESTING WITH BED IN LOWEST POSITION, AND CALL LIGHT WITHIN REACH.
[2025-06-05] MEDS ORDERED: Insulin Regular 100 UNIT/ML 10ML Vial SC SCH ×2 (07:30)
[2025-06-05 07:48] VITALS: BP 150/73
[2025-06-05 12:20] LABS: Hematocrit 21.7 % (33.0-51.0); Hemoglobin 7.4 g/dL (11.5-16.0)
[2025-06-05 15:42] VITALS: BP 151/81
[2025-06-05 18:14] LABS: Hematocrit 25.1 % (33.0-51.0); Hemoglobin 8.2 g/dL (11.5-16.0)
--- NOTE | 2025-06-05 19:16 | NUR ---
SHIFT SUMMARY HERE FOR PANCYTOPENIA. S/P SINGLE TRANSFUSION PRBCS IN ED ON 06/02/25. PLATELET COUNT DOWN FROM 18 TO 17. PT DYSPNEIC ON EXERTION, TELEMETRY SHOWING TACHYCARDIA TO 120S WITH EXERTION DURING BED BATH TODAY. WIDESPREAD ECCHYMOSES 2/2 DIAGNOSIS. PT PLEASANT AND COOPERATIVE, TEARFUL AND ANXIOUS, WELL CONTROLLED WITH BASELINE PRN CLONAZEPAM UP TO BID. PLAN FOR TRANSFER TO [facility] PER DR. WICK. NEEDS FURTHER WORKUP/POSSIBLE BONE MARROW BIOPSY TO FURTHER ADDRESS PANCYTOPENIA AND FEW ATYPICAL LYMPHOID CELLS SUSPICIOUS FOR BLASTS. REQUIRES 2L NC ON EXERTION AND WAS ADVISED 2L/HS PER RT RATHER THAN CPAP AFTER SLEEP STUDY. GAVE REPORT TO RN AT [facility] #[phone]. PENDING ARRANGEMENT OF TRANSPORTATION AT SHIFT CHANGE TO [facility] 13 ROOM 3 BED 1.
[2025-06-05 19:24] VITALS: BP 121/94
[2025-06-05 19:34] VITALS: BP 121/94
[2025-06-06 16:08] LABS: Stool Occult Blood Guaiac 1 Neg (Neg)
== END 2025-06-05 22:10 | disposition short-term general hospital (02) | DRG 809 ==
LOC: ER 19:37 → ERHOLD 19:38 → MEDS 19:38 → ERHOLD 19:38 → MEDS 06-03 13:22
PROVIDERS: Family Medicine; Student in an Organized Health Care Education/Training Program; ADMIT Student in an Organized Health Care Education/Training Program
PROC: 30233N1 Transfusion of Nonautologous Red Blood Cells into Peripheral Vein, Percutaneous Approach (ICD-10-PCS; principal; 2025-06-03)
DX: D61.818 Other pancytopenia (principal); E87.1 Hypo-osmolality and hyponatremia; Z68.42 Body mass index [BMI] 45.0-49.9, adult; T45.1X5A Adverse effect of antineoplastic and immunosuppressive drugs, initial encounter; M06.9 Rheumatoid arthritis, unspecified; M79.81 Nontraumatic hematoma of soft tissue; E11.65 Type 2 diabetes mellitus with hyperglycemia; G47.30 Sleep apnea, unspecified; J45.909 Unspecified asthma, uncomplicated; N20.0 Calculus of kidney; R16.1 Splenomegaly, not elsewhere classified; E66.9 Obesity, unspecified; G43.909 Migraine, unspecified, not intractable, without status migrainosus; G89.29 Other chronic pain; M54.50 Low back pain, unspecified; F41.8 Other specified anxiety disorders; K58.9 Irritable bowel syndrome, unspecified; E11.42 Type 2 diabetes mellitus with diabetic polyneuropathy; Z79.4 Long term (current) use of insulin; Z79.631 Long term (current) use of antimetabolite agent; Z79.51 Long term (current) use of inhaled steroids; Z79.1 Long term (current) use of non-steroidal anti-inflammatories (NSAID); Z79.891 Long term (current) use of opiate analgesic
CPT/HCPCS: 36415; 36430; 70450; 76705; 76882; 80048; 80053; 81001; 82272; 82607; 82728; 82746; 82947; 83010; 83036; 83540; 83550; 83615; 83735; 85014; 85018; 85025; 85045; 85049; 85379; 85384; 85610; 85730; 86850; 86880; 86900; 86901; 86923; 87086; 94640; 94664; 94762; 99285-25; A9270; G0378; J1815; J7030; P9016

== ENCOUNTER 2025-07-11 14:56 | Day surgery (SDC) | payer MEDICARE, OTHER ==
[~2025-07-11 14:56] MED LIST changes: +METO25ER PO
== END 2025-07-11 15:30 | disposition home or self-care (01) ==
LOC: ATC 14:56
DX: C92.00 Acute myeloblastic leukemia, not having achieved remission (principal); M05.79 Rheumatoid arthritis with rheumatoid factor of multiple sites without organ or systems involvement; K21.9 Gastro-esophageal reflux disease without esophagitis; I10 Essential (primary) hypertension; E11.9 Type 2 diabetes mellitus without complications; J45.20 Mild intermittent asthma, uncomplicated; Z79.4 Long term (current) use of insulin; Z79.899 Other long term (current) drug therapy
CPT/HCPCS: 36592

== ENCOUNTER 2025-07-14 02:52 | Day surgery (SDC) | payer MEDICARE, OTHER ==
[2025-07-14 11:00] VITALS: BP 143/60
[2025-07-14 12:02] LABS: BASOPHILS ABSOLUTE AUTO 0.01 K/mm3 (0.00-0.23); BASOPHILS PERCENT AUTO 1 % (0-2); EOSINOPHILS ABSOLUTE AUTO 0.00 K/mm3 (0.00-0.68); EOSINOPHILS PERCENT AUTO 0 % (0-6); Hematocrit 26.9 % (33.0-51.0); Hemoglobin 8.6 g/dL (11.5-16.0); IMMATURE GRAN ABSOLUTE AUTO 0.07 K/mm3 (0.00-0.10); IMMATURE GRAN PERCENT AUTO 4 % (0-1); LYMPHOCYTES ABSOLUTE AUTO 0.47 K/mm3 (0.84-5.20); LYMPHOCYTES PERCENT AUTO 27 % (21-46); MONOCYTES ABSOLUTE AUTO 0.43 K/mm3 (0.16-1.47); MONOCYTES PERCENT AUTO 25 % (4-13); Mean Corpuscular HGB Conc 32.0 g/dL (31.5-36.5); Mean Corpuscular Volume 92 fL (80-100); NEUTROPHILS ABSOLUTE AUTO 0.74 K/mm3 (1.96-9.15); NEUTROPHILS PERCENT AUTO 43 % (41-73); NRBC ABSOLUTE 0.06 K/mm3 (0.00-0.02); NRBC Auto 3.5 /100 WBC (0.0-0.2); Platelet Count 127 K/mm3 (150-400); RDW Coefficient Variation 18.8 % (11.7-14.2); RDW Standard Deviation 59.0 fL (35.1-46.3)
[2025-07-14 12:30] LABS: Alanine Aminotransfer (ALT/SGP 14.0 U/L (12-78); Albumin, Blood 3.0 g/dL (3.4-5.0); Albumin/Globulin Ratio 0.8 (0.8-1.8); Anion Gap 9.0 mmol/L (3-11); Aspartate Aminotrans (AST/SGOT 16.0 U/L (12-37); Bilirubin, Total 0.7 mg/dL (0.1-1.0); Blood Urea Nitrogen 14.0 mg/dL (8-24); CO2, Blood 28.0 mmol/L (21-32); Calcium, Blood 9.0 mg/dL (8.5-10.1); Chloride, Blood 100.0 mmol/L (98-108); Creatinine, Blood 0.8 mg/dL (0.40-1.00); Globulin, Blood 3.9 g/dL (2.2-4.0); Glucose, Blood 308.0 mg/dL (70-99); Potassium, Blood 4.3 mmol/L (3.5-5.5); Sodium, Blood 133.0 mmol/L (136-145); Total Protein, Blood 6.9 g/dL (6.4-8.2)
== END 2025-07-14 11:10 | disposition home or self-care (01) ==
LOC: ATC 02:52
PROVIDERS: Internal Medicine Hematology & Oncology
DX: C92.00 Acute myeloblastic leukemia, not having achieved remission (principal); E11.42 Type 2 diabetes mellitus with diabetic polyneuropathy; G43.909 Migraine, unspecified, not intractable, without status migrainosus; I10 Essential (primary) hypertension; J45.20 Mild intermittent asthma, uncomplicated; Z79.4 Long term (current) use of insulin; Z79.899 Other long term (current) drug therapy
CPT/HCPCS: 36591; 80053; 85025

== ENCOUNTER 2025-07-18 01:10 | Day surgery (SDC) | payer MEDICARE, OTHER ==
[2025-07-18 13:58] VITALS: BP 120/72
[2025-07-18 14:41] LABS: BASOPHILS ABSOLUTE AUTO 0.01 K/mm3 (0.00-0.23); BASOPHILS PERCENT AUTO 0 % (0-2); EOSINOPHILS ABSOLUTE AUTO 0.00 K/mm3 (0.00-0.68); EOSINOPHILS PERCENT AUTO 0 % (0-6); Hematocrit 25.8 % (33.0-51.0); Hemoglobin 8.3 g/dL (11.5-16.0); IMMATURE GRAN ABSOLUTE AUTO 0.10 K/mm3 (0.00-0.10); IMMATURE GRAN PERCENT AUTO 3 % (0-1); LYMPHOCYTES ABSOLUTE AUTO 0.53 K/mm3 (0.84-5.20); LYMPHOCYTES PERCENT AUTO 17 % (21-46); MONOCYTES ABSOLUTE AUTO 0.30 K/mm3 (0.16-1.47); MONOCYTES PERCENT AUTO 10 % (4-13); Mean Corpuscular HGB Conc 32.2 g/dL (31.5-36.5); Mean Corpuscular Volume 92 fL (80-100); NEUTROPHILS ABSOLUTE AUTO 2.18 K/mm3 (1.96-9.15); NEUTROPHILS PERCENT AUTO 70 % (41-73); NRBC ABSOLUTE 0.08 K/mm3 (0.00-0.02); NRBC Auto 2.6 /100 WBC (0.0-0.2); Platelet Count 114 K/mm3 (150-400); RDW Coefficient Variation 19.1 % (11.7-14.2); RDW Standard Deviation 60.6 fL (35.1-46.3)
[2025-07-18 15:07] LABS: Alanine Aminotransfer (ALT/SGP 18.0 U/L (12-78); Albumin, Blood 3.0 g/dL (3.4-5.0); Albumin/Globulin Ratio 0.8 (0.8-1.8); Anion Gap 12.0 mmol/L (3-11); Aspartate Aminotrans (AST/SGOT 27.0 U/L (12-37); Bilirubin, Total 0.8 mg/dL (0.1-1.0); Blood Urea Nitrogen 14.0 mg/dL (8-24); CO2, Blood 27.0 mmol/L (21-32); Calcium, Blood 8.8 mg/dL (8.5-10.1); Chloride, Blood 98.0 mmol/L (98-108); Creatinine, Blood 0.76 mg/dL (0.40-1.00); Globulin, Blood 4.0 g/dL (2.2-4.0); Glucose, Blood 373.0 mg/dL (70-99); Potassium, Blood 4.5 mmol/L (3.5-5.5); Sodium, Blood 132.0 mmol/L (136-145); Total Protein, Blood 7.0 g/dL (6.4-8.2)
== END 2025-07-18 14:00 | disposition home or self-care (01) ==
LOC: ATC 01:10
PROVIDERS: Internal Medicine Hematology & Oncology
DX: Z45.2 Encounter for adjustment and management of vascular access device (principal); C92.00 Acute myeloblastic leukemia, not having achieved remission; G89.4 Chronic pain syndrome; I10 Essential (primary) hypertension; E11.9 Type 2 diabetes mellitus without complications; J45.20 Mild intermittent asthma, uncomplicated; M06.9 Rheumatoid arthritis, unspecified; K58.9 Irritable bowel syndrome, unspecified; K21.9 Gastro-esophageal reflux disease without esophagitis; Z79.4 Long term (current) use of insulin; Z79.899 Other long term (current) drug therapy; Z90.710 Acquired absence of both cervix and uterus
CPT/HCPCS: 36591; 80053; 85025; 99211

== ENCOUNTER 2025-07-25 00:43 | Day surgery (SDC) | payer MEDICARE, OTHER ==
[2025-07-25 11:32] VITALS: BP 137/77
[2025-07-25 12:07] LABS: BASOPHILS ABSOLUTE AUTO 0.01 K/mm3 (0.00-0.23); BASOPHILS PERCENT AUTO 1 % (0-2); EOSINOPHILS ABSOLUTE AUTO 0.00 K/mm3 (0.00-0.68); EOSINOPHILS PERCENT AUTO 0 % (0-6); Hematocrit 24.8 % (33.0-51.0); Hemoglobin 7.8 g/dL (11.5-16.0); IMMATURE GRAN ABSOLUTE AUTO 0.03 K/mm3 (0.00-0.10); IMMATURE GRAN PERCENT AUTO 1 % (0-1); LYMPHOCYTES ABSOLUTE AUTO 0.40 K/mm3 (0.84-5.20); LYMPHOCYTES PERCENT AUTO 18 % (21-46); MONOCYTES ABSOLUTE AUTO 0.27 K/mm3 (0.16-1.47); MONOCYTES PERCENT AUTO 12 % (4-13); Mean Corpuscular HGB Conc 31.5 g/dL (31.5-36.5); Mean Corpuscular Volume 93 fL (80-100); NEUTROPHILS ABSOLUTE AUTO 1.50 K/mm3 (1.96-9.15); NEUTROPHILS PERCENT AUTO 68 % (41-73); NRBC ABSOLUTE 0.11 K/mm3 (0.00-0.02); NRBC Auto 5.0 /100 WBC (0.0-0.2); Platelet Count 102 K/mm3 (150-400); RDW Coefficient Variation 21.0 % (11.7-14.2); RDW Standard Deviation 67.3 fL (35.1-46.3)
[2025-07-25 13:01] LABS: Alanine Aminotransfer (ALT/SGP 16.0 U/L (12-78); Albumin, Blood 3.0 g/dL (3.4-5.0); Albumin/Globulin Ratio 0.8 (0.8-1.8); Anion Gap 8.0 mmol/L (3-11); Aspartate Aminotrans (AST/SGOT 19.0 U/L (12-37); Bilirubin, Total 0.9 mg/dL (0.1-1.0); Blood Urea Nitrogen 14.0 mg/dL (8-24); CO2, Blood 29.0 mmol/L (21-32); Calcium, Blood 8.8 mg/dL (8.5-10.1); Chloride, Blood 101.0 mmol/L (98-108); Creatinine, Blood 0.73 mg/dL (0.40-1.00); Globulin, Blood 3.6 g/dL (2.2-4.0); Glucose, Blood 320.0 mg/dL (70-99); Potassium, Blood 4.0 mmol/L (3.5-5.5); Sodium, Blood 134.0 mmol/L (136-145); Total Protein, Blood 6.6 g/dL (6.4-8.2)
== END 2025-07-25 11:50 | disposition home or self-care (01) ==
LOC: ATC 00:43
PROVIDERS: Internal Medicine Hematology & Oncology
DX: C92.00 Acute myeloblastic leukemia, not having achieved remission (principal); E11.42 Type 2 diabetes mellitus with diabetic polyneuropathy; K21.9 Gastro-esophageal reflux disease without esophagitis; I10 Essential (primary) hypertension; J45.20 Mild intermittent asthma, uncomplicated; G43.909 Migraine, unspecified, not intractable, without status migrainosus
CPT/HCPCS: 36591; 80053; 85025

== ENCOUNTER 2025-08-01 00:36 | Day surgery (SDC) | payer MEDICARE, OTHER | END 2025-08-01 12:02 | disposition home or self-care (01) | LOC: ATC 00:36 | DX: C92.00 Acute myeloblastic leukemia, not having achieved remission (principal); I10 Essential (primary) hypertension; E11.9 Type 2 diabetes mellitus without complications; J45.20 Mild intermittent asthma, uncomplicated; K21.9 Gastro-esophageal reflux disease without esophagitis; M06.9 Rheumatoid arthritis, unspecified; Z79.4 Long term (current) use of insulin; Z79.899 Other long term (current) drug therapy ==

== ENCOUNTER 2025-08-10 01:28 | Day surgery (SDC) | payer MEDICARE, OTHER ==
[2025-08-08 11:45] VITALS: BP 140/65
[2025-08-08 12:26] LABS: Hematocrit 23.3 % (33.0-51.0); Hemoglobin 7.4 g/dL (11.5-16.0); Mean Corpuscular HGB Conc 31.8 g/dL (31.5-36.5); Mean Corpuscular Volume 94 fL (80-100); NRBC ABSOLUTE 0.04 K/mm3 (0.00-0.02); NRBC Auto 2.2 /100 WBC (0.0-0.2); Platelet Count 60 K/mm3 (150-400); RDW Coefficient Variation 22.1 % (11.7-14.2); RDW Standard Deviation 73.5 fL (35.1-46.3)
[2025-08-08 12:57] LABS: Alanine Aminotransfer (ALT/SGP 13.0 U/L (12-78); Albumin, Blood 2.9 g/dL (3.4-5.0); Albumin/Globulin Ratio 0.7 (0.8-1.8); Anion Gap 8.0 mmol/L (3-11); Aspartate Aminotrans (AST/SGOT 15.0 U/L (12-37); Bilirubin, Total 0.8 mg/dL (0.1-1.0); Blood Urea Nitrogen 16.0 mg/dL (8-24); CO2, Blood 26.0 mmol/L (21-32); Calcium, Blood 8.6 mg/dL (8.5-10.1); Chloride, Blood 104.0 mmol/L (98-108); Creatinine, Blood 0.69 mg/dL (0.40-1.00); Globulin, Blood 4.2 g/dL (2.2-4.0); Glucose, Blood 251.0 mg/dL (70-99); Potassium, Blood 4.2 mmol/L (3.5-5.5); Sodium, Blood 134.0 mmol/L (136-145); Total Protein, Blood 7.1 g/dL (6.4-8.2)
[2025-08-08 13:04] LABS: BAND PERCENT MAN 3 % (0-8); BASOPHILS ABSOLUTE MAN 0.00 K/mm3 (0.00-0.23); BASOPHILS PERCENT MAN 0 % (0-2); EOSINOPHILS ABSOLUTE MAN 0.01 K/mm3 (0.00-0.68); EOSINOPHILS PERCENT MAN 1 % (0-6); LYMPHOCYTES % ATYPICAL MANUAL 1 % (0-0); LYMPHOCYTES ABSOLUTE MAN 0.55 K/mm3 (0.84-5.20); LYMPHOCYTES PERCENT MAN 29 % (21-46); MONOCYTES ABSOLUTE MAN 0.00 K/mm3 (0.16-1.47); MONOCYTES PERCENT MAN 0 % (4-13); NEUTROPHILS ABSOLUTE MAN 1.27 K/mm3 (1.96-9.15); SEG NEUTROPHILS PERCENT MAN 66 % (41-73)
[2025-08-10] MEDS ORDERED: NS 250 ML IV SCH (06:00)
[2025-08-10 13:27] VITALS: BP 134/47
[2025-08-10 13:50] VITALS: BP 112/58
[2025-08-10 14:51] VITALS: BP 113/60
[2025-08-10 15:24] VITALS: BP 145/51
[2025-08-10 15:45] VITALS: BP 122/54
[2025-08-10 17:08] VITALS: BP 128/62
== END 2025-08-10 17:10 | disposition home or self-care (01) ==
LOC: ATC 01:28
PROVIDERS: Internal Medicine Hematology & Oncology
DX: C92.00 Acute myeloblastic leukemia, not having achieved remission (principal); D61.818 Other pancytopenia; I10 Essential (primary) hypertension; K21.9 Gastro-esophageal reflux disease without esophagitis; E11.9 Type 2 diabetes mellitus without complications; K58.9 Irritable bowel syndrome, unspecified; M06.9 Rheumatoid arthritis, unspecified; G43.909 Migraine, unspecified, not intractable, without status migrainosus; Z79.899 Other long term (current) drug therapy
CPT/HCPCS: 36430; 36591; 80053; 85025; 86850; 86900; 86901; 86923; J7050; P9016

== ENCOUNTER 2025-08-15 11:22 | Day surgery (SDC) | payer MEDICARE, OTHER ==
[2025-08-15 12:10] VITALS: BP 141/71
[2025-08-15 12:22] LABS: Hematocrit 25.2 % (33.0-51.0); Hemoglobin 8.2 g/dL (11.5-16.0); Mean Corpuscular HGB Conc 32.5 g/dL (31.5-36.5); Mean Corpuscular Volume 88 fL (80-100); NRBC ABSOLUTE 0.00 K/mm3 (0.00-0.02); NRBC Auto 0.0 /100 WBC (0.0-0.2); RDW Coefficient Variation 19.3 % (11.7-14.2); RDW Standard Deviation 61.8 fL (35.1-46.3)
[2025-08-15 12:33] LABS: BASOPHILS ABSOLUTE AUTO 0.00 K/mm3 (0.00-0.23); BASOPHILS PERCENT AUTO 0 % (0-2); EOSINOPHILS ABSOLUTE AUTO 0.03 K/mm3 (0.00-0.68); EOSINOPHILS PERCENT AUTO 6 % (0-6); IMMATURE GRAN ABSOLUTE AUTO 0.01 K/mm3 (0.00-0.10); IMMATURE GRAN PERCENT AUTO 2 % (0-1); LYMPHOCYTES ABSOLUTE AUTO 0.23 K/mm3 (0.84-5.20); LYMPHOCYTES PERCENT AUTO 44 % (21-46); MONOCYTES ABSOLUTE AUTO 0.04 K/mm3 (0.16-1.47); MONOCYTES PERCENT AUTO 8 % (4-13); NEUTROPHILS ABSOLUTE AUTO 0.21 K/mm3 (1.96-9.15); NEUTROPHILS PERCENT AUTO 40 % (41-73)
[2025-08-15 12:36] LABS: Platelet Count 31 K/mm3 (150-400)
[2025-08-15 13:56] LABS: Alanine Aminotransfer (ALT/SGP 14.0 U/L (12-78); Albumin, Blood 2.8 g/dL (3.4-5.0); Albumin/Globulin Ratio 0.7 (0.8-1.8); Anion Gap 11.0 mmol/L (3-11); Aspartate Aminotrans (AST/SGOT 17.0 U/L (12-37); Bilirubin, Total 0.9 mg/dL (0.1-1.0); Blood Urea Nitrogen 15.0 mg/dL (8-24); CO2, Blood 28.0 mmol/L (21-32); Calcium, Blood 8.6 mg/dL (8.5-10.1); Chloride, Blood 99.0 mmol/L (98-108); Creatinine, Blood 0.63 mg/dL (0.40-1.00); Globulin, Blood 4.1 g/dL (2.2-4.0); Glucose, Blood 286.0 mg/dL (70-99); Potassium, Blood 4.0 mmol/L (3.5-5.5); Sodium, Blood 134.0 mmol/L (136-145); Total Protein, Blood 6.9 g/dL (6.4-8.2)
== END 2025-08-15 12:10 | disposition home or self-care (01) ==
LOC: ATC 11:22
PROVIDERS: Internal Medicine Hematology & Oncology
DX: Z45.2 Encounter for adjustment and management of vascular access device (principal); C92.00 Acute myeloblastic leukemia, not having achieved remission; E11.9 Type 2 diabetes mellitus without complications; K21.9 Gastro-esophageal reflux disease without esophagitis; M06.9 Rheumatoid arthritis, unspecified; I10 Essential (primary) hypertension; K58.9 Irritable bowel syndrome, unspecified; Z79.899 Other long term (current) drug therapy; Z90.710 Acquired absence of both cervix and uterus
CPT/HCPCS: 36591; 80053; 85025

== ENCOUNTER 2025-08-23 15:42 | Day surgery (SDC) | payer MEDICARE, OTHER ==
[2025-08-22 13:12] VITALS: BP 132/61
[2025-08-22 13:48] LABS: Hematocrit 20.2 % (33.0-51.0); Hemoglobin 6.6 g/dL (11.5-16.0); Mean Corpuscular HGB Conc 32.7 g/dL (31.5-36.5); Mean Corpuscular Volume 85 fL (80-100); NRBC ABSOLUTE 0.00 K/mm3 (0.00-0.02); NRBC Auto 0.0 /100 WBC (0.0-0.2); RDW Coefficient Variation 18.2 % (11.7-14.2); RDW Standard Deviation 55.3 fL (35.1-46.3)
[2025-08-22 14:07] LABS: Alanine Aminotransfer (ALT/SGP 15.0 U/L (12-78); Albumin, Blood 3.0 g/dL (3.4-5.0); Albumin/Globulin Ratio 0.7 (0.8-1.8); Anion Gap 9.0 mmol/L (3-11); Aspartate Aminotrans (AST/SGOT 16.0 U/L (12-37); Bilirubin, Total 0.9 mg/dL (0.1-1.0); Blood Urea Nitrogen 23.0 mg/dL (8-24); CO2, Blood 25.0 mmol/L (21-32); Calcium, Blood 8.8 mg/dL (8.5-10.1); Chloride, Blood 99.0 mmol/L (98-108); Creatinine, Blood 0.86 mg/dL (0.40-1.00); Globulin, Blood 4.4 g/dL (2.2-4.0); Glucose, Blood 285.0 mg/dL (70-99); Potassium, Blood 4.3 mmol/L (3.5-5.5); Sodium, Blood 129.0 mmol/L (136-145); Total Protein, Blood 7.4 g/dL (6.4-8.2)
[2025-08-22 14:15] LABS: Platelet Count 22 K/mm3 (150-400)
[2025-08-22 14:30] LABS: BASOPHILS ABSOLUTE MAN 0.00 K/mm3 (0.00-0.23); BASOPHILS PERCENT MAN 0 % (0-2); EOSINOPHILS ABSOLUTE MAN 0.00 K/mm3 (0.00-0.68); EOSINOPHILS PERCENT MAN 0 % (0-6); LYMPHOCYTES ABSOLUTE MAN 0.26 K/mm3 (0.84-5.20); LYMPHOCYTES PERCENT MAN 38 % (21-46); MONOCYTES ABSOLUTE MAN 0.01 K/mm3 (0.16-1.47); MONOCYTES PERCENT MAN 2 % (4-13); NEUTROPHILS ABSOLUTE MAN 0.42 K/mm3 (1.96-9.15); SEG NEUTROPHILS PERCENT MAN 60 % (41-73)
[2025-08-23] VITALS (7 sets, daily range): BP systolic 106–138; BP diastolic 43–61
[~2025-08-23 15:42] MED LIST changes: +NS 250 ML IV SCH
== END 2025-08-23 23:40 | disposition home or self-care (01) ==
LOC: ATC 15:42
PROVIDERS: Internal Medicine Hematology & Oncology
DX: C92.00 Acute myeloblastic leukemia, not having achieved remission (principal); D61.818 Other pancytopenia; I10 Essential (primary) hypertension; E11.42 Type 2 diabetes mellitus with diabetic polyneuropathy; K21.9 Gastro-esophageal reflux disease without esophagitis; J45.20 Mild intermittent asthma, uncomplicated
CPT/HCPCS: 36430; 36591; 80053; 85025; 86850; 86900; 86901; 86923; 99211; J7050; P9016

== ENCOUNTER → 2025-08-29 | Outpatient (CLI) | payer MEDICARE ==
[~2025-08-29] MED LIST changes: +Inderal60 MG PO; +METO10 PO; -NS 250 ML IV SCH; +OXYC10TA19 PO; +POSACONAZOLE100 MG PO; +TAMS.4ER PO; +VENCLEXTA100 MG PO; +Vitamin D1000 UNI1 PO
[2025-08-29 14:38] LABS: Hematocrit 20.2 % (33.0-51.0); Hemoglobin 6.8 g/dL (11.5-16.0); Mean Corpuscular HGB Conc 33.7 g/dL (31.5-36.5); Mean Corpuscular Volume 84 fL (80-100); NRBC ABSOLUTE 0.02 K/mm3 (0.00-0.02); NRBC Auto 6.5 /100 WBC (0.0-0.2); RDW Coefficient Variation 17.4 % (11.7-14.2); RDW Standard Deviation 51.5 fL (35.1-46.3)
[2025-08-29 14:44] LABS: Alanine Aminotransfer (ALT/SGP 11.0 U/L (12-78); Albumin, Blood 2.9 g/dL (3.4-5.0); Albumin/Globulin Ratio 0.7 (0.8-1.8); Anion Gap 11.0 mmol/L (3-11); Aspartate Aminotrans (AST/SGOT 12.0 U/L (12-37); Bilirubin, Total 1.1 mg/dL (0.1-1.0); Blood Urea Nitrogen 16.0 mg/dL (8-24); CO2, Blood 25.0 mmol/L (21-32); Calcium, Blood 8.8 mg/dL (8.5-10.1); Chloride, Blood 100.0 mmol/L (98-108); Creatinine, Blood 0.76 mg/dL (0.40-1.00); Globulin, Blood 4.1 g/dL (2.2-4.0); Glucose, Blood 336.0 mg/dL (70-99); Potassium, Blood 4.0 mmol/L (3.5-5.5); Sodium, Blood 132.0 mmol/L (136-145); Total Protein, Blood 7.0 g/dL (6.4-8.2)
[2025-08-29 15:15] LABS: Platelet Count 26 K/mm3 (150-400)
[2025-08-29 15:28] LABS: BASOPHILS ABSOLUTE MAN 0.00 K/mm3 (0.00-0.23); BASOPHILS PERCENT MAN 0 % (0-2); BLASTS PERCENT MAN 2 % (0-0); EOSINOPHILS ABSOLUTE MAN 0.00 K/mm3 (0.00-0.68); EOSINOPHILS PERCENT MAN 0 % (0-6); LYMPHOCYTES ABSOLUTE MAN 0.21 K/mm3 (0.84-5.20); LYMPHOCYTES PERCENT MAN 70 % (21-46); MONOCYTES ABSOLUTE MAN 0.00 K/mm3 (0.16-1.47); MONOCYTES PERCENT MAN 2 % (4-13); NEUTROPHILS ABSOLUTE MAN 0.07 K/mm3 (1.96-9.15); PLASMA CELL ABSOLUTE MAN 0.00 K/mm3 (0.00-0.00); PLASMA CELLS PERCENT MAN 2 % (0-0); SEG NEUTROPHILS PERCENT MAN 24 % (41-73)
== END | disposition home or self-care (01) ==
LOC: LAB SHORT 14:34 → LAB 14:34 → LAB FUT 09-06 08:40 → EDSTATUS 07-20 14:25 → LAB FUT 07-20 14:25
PROVIDERS: Internal Medicine Hematology & Oncology
DX: C92.00 Acute myeloblastic leukemia, not having achieved remission (principal)
CPT/HCPCS: 36591; 80053; 85025

== ENCOUNTER 2025-08-31 01:26 | Day surgery (SDC) | payer MEDICARE ==
[2025-08-29 13:32] VITALS: BP 169/86
[~2025-08-31 01:26] MED LIST changes: -Inderal60 MG PO; -METO10 PO; -OXYC10TA19 PO; -POSACONAZOLE100 MG PO; -TAMS.4ER PO; -VENCLEXTA100 MG PO; -Vitamin D1000 UNI1 PO
[2025-08-31] MEDS ORDERED: NS 250 ML IV SCH (07:00)
[2025-08-31 13:55] VITALS: BP 91/38
[2025-08-31 14:14] VITALS: BP 125/59
[2025-08-31 15:15] VITALS: BP 103/55
[2025-08-31 16:00] VITALS: BP 106/64
[2025-08-31 17:15] VITALS: BP 121/58
[2025-09-21] MEDS ORDERED: Vitamin D1000 UNI1 PO (13:29)
[2025-09-21] MEDS ORDERED: INSULANI SC (13:34)
[2025-09-21] MEDS ORDERED: METO10 PO (13:35)
[2025-09-21] MEDS ORDERED: OXYC10TA19 PO (13:37)
[2025-09-21] MEDS ORDERED: Inderal60 MG PO (14:40)
[2025-09-21] MEDS ORDERED: TAMS.4ER PO (14:41)
[2025-09-21] MEDS ORDERED: VENCLEXTA100 MG PO (14:42)
[2025-09-21] MEDS ORDERED: FURO20 PO (14:45)
[2025-09-21] MEDS ORDERED: POSACONAZOLE100 MG PO (14:46)
== END 2025-08-31 17:20 | disposition home or self-care (01) ==
LOC: ATC 01:26
DX: C92.00 Acute myeloblastic leukemia, not having achieved remission (principal); D61.818 Other pancytopenia; E11.9 Type 2 diabetes mellitus without complications; G43.909 Migraine, unspecified, not intractable, without status migrainosus; G89.3 Neoplasm related pain (acute) (chronic); I10 Essential (primary) hypertension; K21.9 Gastro-esophageal reflux disease without esophagitis; K58.9 Irritable bowel syndrome, unspecified; M06.9 Rheumatoid arthritis, unspecified; Z79.1 Long term (current) use of non-steroidal anti-inflammatories (NSAID); Z79.4 Long term (current) use of insulin; Z79.51 Long term (current) use of inhaled steroids; Z79.899 Other long term (current) drug therapy
CPT/HCPCS: 36430; 36591; 80053; 85025; 86850; 86900; 86901; 86923; 99211; J7050; P9016

== ENCOUNTER 2025-09-12 02:41 | Day surgery (SDC) | payer MEDICARE, OTHER ==
[2025-09-12 13:17] VITALS: BP 166/64
[2025-09-12 14:13] LABS: Hematocrit 23.1 % (33.0-51.0); Hemoglobin 7.6 g/dL (11.5-16.0); Mean Corpuscular HGB Conc 32.9 g/dL (31.5-36.5); Mean Corpuscular Volume 87 fL (80-100); NRBC ABSOLUTE 0.04 K/mm3 (0.00-0.02); NRBC Auto 7.7 /100 WBC (0.0-0.2); RDW Coefficient Variation 17.2 % (11.7-14.2); RDW Standard Deviation 53.4 fL (35.1-46.3)
[2025-09-12 14:15] LABS: BASOPHILS ABSOLUTE AUTO 0.00 K/mm3 (0.00-0.23); BASOPHILS PERCENT AUTO 0 % (0-2); EOSINOPHILS ABSOLUTE AUTO 0.00 K/mm3 (0.00-0.68); EOSINOPHILS PERCENT AUTO 0 % (0-6); IMMATURE GRAN ABSOLUTE AUTO 0.00 K/mm3 (0.00-0.10); IMMATURE GRAN PERCENT AUTO 0 % (0-1); LYMPHOCYTES ABSOLUTE AUTO 0.22 K/mm3 (0.84-5.20); LYMPHOCYTES PERCENT AUTO 42 % (21-46); MONOCYTES ABSOLUTE AUTO 0.06 K/mm3 (0.16-1.47); MONOCYTES PERCENT AUTO 12 % (4-13); NEUTROPHILS ABSOLUTE AUTO 0.24 K/mm3 (1.96-9.15); NEUTROPHILS PERCENT AUTO 46 % (41-73)
[2025-09-12 14:18] LABS: Platelet Count 43 K/mm3 (150-400)
[2025-09-12 14:33] LABS: Alanine Aminotransfer (ALT/SGP 11.0 U/L (12-78); Albumin, Blood 2.5 g/dL (3.4-5.0); Albumin/Globulin Ratio 0.6 (0.8-1.8); Anion Gap 8.0 mmol/L (3-11); Aspartate Aminotrans (AST/SGOT 13.0 U/L (12-37); Bilirubin, Total 0.8 mg/dL (0.1-1.0); Blood Urea Nitrogen 16.0 mg/dL (8-24); CO2, Blood 28.0 mmol/L (21-32); Calcium, Blood 8.8 mg/dL (8.5-10.1); Chloride, Blood 101.0 mmol/L (98-108); Creatinine, Blood 0.62 mg/dL (0.40-1.00); Globulin, Blood 4.5 g/dL (2.2-4.0); Glucose, Blood 396.0 mg/dL (70-99); Potassium, Blood 4.0 mmol/L (3.5-5.5); Sodium, Blood 133.0 mmol/L (136-145); Total Protein, Blood 7.0 g/dL (6.4-8.2)
[2025-09-12 15:24] LABS: BASOPHILS ABSOLUTE MAN 0.00 K/mm3 (0.00-0.23); BASOPHILS PERCENT MAN 0 % (0-2); EOSINOPHILS ABSOLUTE MAN 0.00 K/mm3 (0.00-0.68); EOSINOPHILS PERCENT MAN 0 % (0-6); LYMPHOCYTES ABSOLUTE MAN 0.22 K/mm3 (0.84-5.20); LYMPHOCYTES PERCENT MAN 43 % (21-46); MONOCYTES ABSOLUTE MAN 0.00 K/mm3 (0.16-1.47); MONOCYTES PERCENT MAN 0 % (4-13); MYELOCYTE ABSOLUTE MAN 0.01 K/mm3 (0.00-0.00); MYELOCYTE PERCENT MAN 3 % (0-0); NEUTROPHILS ABSOLUTE MAN 0.27 K/mm3 (1.96-9.15); SEG NEUTROPHILS PERCENT MAN 53 % (41-73)
== END 2025-09-12 13:37 | disposition home or self-care (01) ==
LOC: ATC 02:41
PROVIDERS: Internal Medicine Hematology & Oncology
DX: Z45.2 Encounter for adjustment and management of vascular access device (principal); C92.00 Acute myeloblastic leukemia, not having achieved remission; E11.9 Type 2 diabetes mellitus without complications; K21.9 Gastro-esophageal reflux disease without esophagitis; I10 Essential (primary) hypertension; M06.9 Rheumatoid arthritis, unspecified; Z79.899 Other long term (current) drug therapy
CPT/HCPCS: 80053; 85025